=== PATIENT | female | born 1940 | race Two or more races ===

== ENCOUNTER → 2025-01-01 | Outpatient (CLI) | payer MEDICARE, MEDICAID, SELFPAY ==
--- NOTE | 2025-01-01 14:20 | XR_ITS ---
Examination: Bone densitometry Date and time of exam:January 02, 2020 5:11 AM INDICATIONS: Hysterectomy age 26 postmenopausal shoulder fracture Technique: Lumbar spine and hip total bone mineralization values of an calculated. Peak reference and age match control results have been displayed. Findings: Lumbar spine total bone mineralization is1.107 gm/cm2. This is 0.5 standard deviations above peak reference. Hip total bone mineralization is 0.657 gm/cm2 This is 2.3 standard deviations below peak reference. Impression: There is normal mineralization based on lumbar spine measurements. There is osteoporosis based on hip measurements
== END | disposition home or self-care (01) ==
PROVIDERS: Referring Provider Physician Assistant; Visit Provider Physician Assistant
DX: M81.8 Other osteoporosis without current pathological fracture (principal)
CPT/HCPCS: 77080